=== PATIENT | male | born 1955 | race Caucasian/White ===

== ENCOUNTER 2017-05-16 16:04 | Emergency (ER) | payer BC, SELFPAY ==
[2017-05-16] MEDS ORDERED: Pantoprazole 40 MG VIAL ONE (16:26)
[2017-05-16 16:42] LABS: ALT (SGPT) 13 U/L (8-55); AST (SGOT) 8 U/L (5-34); Albumin 3.4 g/dL (3.4-4.8); Alkaline Phosphatase 124 U/L (40-150); Anion Gap 21 mmol/L (10-20); BUN (Urea Nitrogen) 13 mg/dL (8.4-25.7); Bilirubin, Total 0.7 mg/dL (0.2-1.2); Calc. Creatinine Clearance 0 mL/min (70-130); Calcium 8.5 mg/dL (7.8-10.44); Carbon Dioxide 18 mmol/L (23-31); Chloride 105 mmol/L (98-107); Estimated GFR-MDRD 48; Globulin 2.7 g/dL (2.4-3.5); Glucose 209 mg/dL (80-115); Lipase 34 U/L (8-78); Potassium 3.4 mmol/L (3.5-5.1); Protein, Total 6.1 g/dL (5.8-8.1); Sodium 141 mmol/L (136-145)
[2017-05-16 16:47] LABS: INR-International Normal Ratio 1.2; PTT 22.9 SEC (22.9-36.1); Prothrombin Time 15.4 SEC (12.0-14.7)
[2017-05-16 16:49] LABS: CKMB 2.8 ng/mL (0-6.6); Troponin I 0.019 ng/mL (< 0.028)
[2017-05-16 16:51] LABS: #Basophils 0.1 thou/uL (0.0-0.2); #Eosinphils 0.1 thou/uL (0.0-0.7); #Lymphocytes 1.9 thou/uL (1.20-3.40); #Monocytes 0.8 thou/uL (0.11-0.59); %Eosinophils 1.3 % (0.0-10.0); %Monocytes 8.3 % (0.0-10.0); %Neutrophils 70.4 % (42.0-75.0); Acanthocytes SLIGHT = 1-5 cells (100X) (None Seen); Hemoglobin 4.7 g/dL (14.0-18.0); Hypochromia MODERATE=16-30 cells (100X) (0-5/hpf); MDiff Complete? YES; Macrocytosis SLIGHT = 6-15 cells (100X) (0-5/hpf); Mean Corpuscular HGB CONC 33.5 g/dL (32.0-36.0); Mean Corpuscular Hemoglobin 28.1 pg (27.0-31.0); Mean Platelet Volume 5.9 fL (7.4-10.4); Microcytosis MODERATE=15-30 cells (100X) (0-5/hpf); Platelet Count 454 thou/uL (130-400); Polychromasia SLIGHT = 2-3 cells (100X) (0-2/hpf); RBC Distribution Width 20.9 % (11.5-14.5); Red Blood Cell (RBC) Count 1.66 mill/uL (4.70-6.10); Schistocytes SLIGHT = 2-5 cells (100X) (0-1/hpf); Tear Drops SLIGHT = 2-5 cells (100X) (0-1/hpf)
--- NOTE | 2017-05-16 20:21 | RAD ---
PORTABLE CHEST 05/16/17 An AP portable film at 1631 shows mild cardiomegaly but no congestive change. The lungs are clear. No lobar infiltrate or effusion was seen. The trachea is midline. IMPRESSION: Mild cardiomegaly. POS: HOME
== END 2017-05-16 18:30 | disposition short-term general hospital (02) ==
LOC: BURERS 16:04
DX: D64.9 Anemia, unspecified (principal); K92.2 Gastrointestinal hemorrhage, unspecified; F84.0 Autistic disorder; E78.00 Pure hypercholesterolemia, unspecified; E78.5 Hyperlipidemia, unspecified; I10 Essential (primary) hypertension; N40.0 Benign prostatic hyperplasia without lower urinary tract symptoms; Z79.899 Other long term (current) drug therapy
CPT/HCPCS: 36430; 71045; 80053; 82274; 82553; 83605; 83690; 84443; 84484; 85025; 85610; 85730; 86850; 86900; 86901; 86922; 87040; 93005; 94760; 96374; 96375; C9113; P9016

== ENCOUNTER 2018-12-05 10:58 | Outpatient (CLI) | payer MEDICARE, SELFPAY ==
--- NOTE | 2018-12-06 07:32 | ULT ---
BILATERAL RENAL ULTRASOUND 12/05/18 Ultrasonography of the kidneys was performed in this patient with chronic renal failure. There is boyd e mild cortical thinning in the kidneys bilaterally. The echogenicity of the cortex is approximately normal. No solid mass or hydronephrosis was seen. There is a 2 cm simple cyst in the right kidney. Th e right kidney is 11.0 x 5.5 x 4.7 cm and the left kidney is 10.8 x 5.1 x 5.6 cm. The urinary bladder showed no internal defects. The volume of the bladder seemed to change very littl e between prevoid and postvoid images. IMPRESSION: 1. Minor cortical thinning bilaterally. 2. 2 cm right renal cyst, appears simple. No hydronephrosis. 3. Significant postvoid residual. POS: HOME
== END 2018-12-05 10:59 | disposition home or self-care (01) ==
LOC: EEVIPCON 10:58 → BURULT 10:58
PROVIDERS: ATTEND Internal Medicine Nephrology
DX: N18.3 Chronic kidney disease, stage 3 (moderate) (principal); N28.1 Cyst of kidney, acquired
CPT/HCPCS: 76770

== ENCOUNTER 2023-10-31 17:06 | Inpatient (IN) | payer MEDICARE ==
[2023-10-31 19:18] VITALS: BMI 27.8
[2023-10-31] MEDS ORDERED: Ondansetron ODT 4 MG TAB PO PRN (19:39)
[2023-10-31] MEDS ORDERED: Polyethylene Glycol 3350 17 GM Packet PO PRN (19:39)
[2023-10-31] MEDS: Acetaminophen 500 MG TAB PO PRN (21:44)
[2023-10-31] MEDS: levETIRAcetam 500 MG TAB PO SCH (21:44)
[2023-10-31] MEDS: Tamsulosin HCl 0.4 MG CAP PO SCH (21:44)
[2023-11-01 05:48] VITALS: BMI 27.8
[2023-11-01] MEDS ORDERED: Enoxaparin 40 MG (0.4 mL) SYRINGE SC SCH (09:00)
[2023-11-01] MEDS ORDERED: Aspirin 325 MG TAB PO SCH (09:00)
[2023-11-01] MEDS: FLUoxetine HCl 20 MG CAP PO SCH (09:06)
[2023-11-01] MEDS: Losartan 25 MG TAB PO SCH (09:07)
[2023-11-01] MEDS: Ferrous Sulfate 325 MG TAB PO SCH (09:07)
[2023-11-01] MEDS: Pantoprazole DR 40 MG TAB PO SCH (09:07)
[2023-11-01] MEDS: metFORMIN XR 500 MG ER.TAB PO SCH (09:07)
[2023-11-01] MEDS: Bisoprolol Fumarate/HCTZ 10 mg/6.25 mg Tablet PO SCH (09:08)
[2023-11-01] MEDS: Hydrochlorothiazide 25 MG TAB PO SCH (13:20)
[2023-11-01] MEDS: Bisoprolol Fumarate 5 MG TAB PO SCH (13:21)
[2023-11-01] MEDS: Atorvastatin Calcium 10 MG TAB PO SCH (21:29)
[2023-11-01] MEDS: Nystatin Powder 15 GM BOT TOP PRN (21:54)
[2023-11-02 05:00] LABS: #Basophils 0.1 thou/uL (0.0-0.2); #Eosinphils 0.5 thou/uL (0.0-0.7); #Lymphocytes 2.4 thou/uL (1.20-3.40); #Monocytes 0.6 thou/uL (0.11-0.59); #Neutrophils 5.6 thou/uL (1.40-6.50); %Basophils 0.6 % (0.0-1.0); %Neutrophils 61.3 % (42.0-75.0); Hematocrit 24.5 % (42.0-52.0); Hemoglobin 7.7 g/dL (14.0-18.0); Mean Corpuscular HGB CONC 31.4 g/dL (32.0-36.0); Mean Corpuscular Hemoglobin 24.4 pg (27.0-31.0); Mean Corpuscular Volume 77.8 fl (78.0-98.0); Mean Platelet Volume 5.2 fL (7.4-10.4); Platelet Count 245 10x3/uL (130-400); Red Blood Cell (RBC) Count 3.15 mill/uL (4.70-6.10); White Blood Cell (WBC) Count 9.1 10x3/uL (4.8-10.8)
[2023-11-02 05:15] LABS: ALT (SGPT) 8 U/L (8-55); AST (SGOT) 9 U/L (5-34); Albumin 2.3 g/dL (3.4-4.8); Alkaline Phosphatase 82 U/L (40-110); Anion Gap 13 mmol/L (10-20); BUN (Urea Nitrogen) 14 mg/dL (8.4-25.7); Bilirubin, Total 0.3 mg/dL (0.2-1.2); Calc. Creatinine Clearance 84 mL/min (70-130); Calcium 7.9 mg/dL (7.8-10.44); Carbon Dioxide 26 mmol/L (23-31); Chloride 103 mmol/L (98-107); Estimated GFR 79; Globulin 3.1 g/dL (2.4-3.5); Glucose 127 mg/dL (80-115); Potassium 3.6 mmol/L (3.5-5.1); Protein, Total 5.4 g/dL (5.8-8.1); Sodium 138 mmol/L (136-145)
[2023-11-02 05:30] LABS: Anisocytosis SLIGHT = 6-15 cells (100X) (0-5/hpf); Burr Cells SLIGHT = 2-5 cells (100X) (0-1/hpf); Elliptocytes SLIGHT = 2-5 cells (100X) (0-1/hpf); MDiff Complete? YES; Platelet Adequacy Comment Appears Adequate; Poikilocytosis SLIGHT = 6-15 cells (100X) (0-5/hpf); Schistocytes SLIGHT = 2-5 cells (100X) (0-1/hpf)
[2023-11-02] MEDS: Bisoprolol Fumarate 5 MG TAB PO SCH (09:06)
[2023-11-02] MEDS: Hydrochlorothiazide 25 MG TAB PO SCH (09:06)
[2023-11-02] MEDS: Magnesium Oxide 400 MG TAB PO SCH (09:08)
[2023-11-06 05:14] LABS: #Basophils 0.1 thou/uL (0.0-0.2); #Eosinphils 0.2 thou/uL (0.0-0.7); #Monocytes 0.8 thou/uL (0.11-0.59); #Neutrophils 8.3 thou/uL (1.40-6.50); %Basophils 1.1 % (0.0-1.0); %Eosinophils 1.4 % (0.0-10.0); %Lymphocytes 17.6 % (21.0-51.0); %Monocytes 6.6 % (0.0-10.0); %Neutrophils 73.3 % (42.0-75.0); Hematocrit 26.2 % (42.0-52.0); Hemoglobin 8.3 g/dL (14.0-18.0); Mean Corpuscular HGB CONC 31.5 g/dL (32.0-36.0); Mean Corpuscular Hemoglobin 24.8 pg (27.0-31.0); Mean Corpuscular Volume 78.8 fl (78.0-98.0); Mean Platelet Volume 5.3 fL (7.4-10.4); Platelet Count 277 10x3/uL (130-400); RBC Distribution Width 22.2 % (11.5-14.5); Red Blood Cell (RBC) Count 3.33 mill/uL (4.70-6.10); White Blood Cell (WBC) Count 11.3 10x3/uL (4.8-10.8)
[2023-11-06 05:20] LABS: Anion Gap 13 mmol/L (10-20); BUN (Urea Nitrogen) 13 mg/dL (8.4-25.7); Calc. Creatinine Clearance 85 mL/min (70-130); Calcium 7.8 mg/dL (7.8-10.44); Carbon Dioxide 27 mmol/L (23-31); Chloride 104 mmol/L (98-107); Estimated GFR 80; Glucose 135 mg/dL (80-115); Potassium 3.2 mmol/L (3.5-5.1); Sodium 141 mmol/L (136-145)
[2023-11-06 05:33] LABS: MDiff Complete? YES
[2023-11-06 05:34] LABS: Anisocytosis SLIGHT = 6-15 cells (100X) (0-5/hpf); Burr Cells SLIGHT = 2-5 cells (100X) (0-1/hpf); Ovalocytes SLIGHT = 2-5 cells (100X) (0-1/hpf); Platelet Adequacy Comment Appears Adequate; Schistocytes SLIGHT = 2-5 cells (100X) (0-1/hpf)
[2023-11-06 13:19] LABS: Hemoglobin A1c 6.2 % (4.0-6.0)
[2023-11-06] MEDS: Potassium Chloride 20 MEQ TAB PO SCH (17:08)
[2023-11-07 05:09] LABS: #Basophils 0.1 thou/uL (0.0-0.2); #Eosinphils 0.2 thou/uL (0.0-0.7); #Lymphocytes 2.1 thou/uL (1.20-3.40); #Monocytes 0.6 thou/uL (0.11-0.59); #Neutrophils 5.1 thou/uL (1.40-6.50); %Eosinophils 2.9 % (0.0-10.0); %Lymphocytes 25.6 % (21.0-51.0); %Monocytes 7.2 % (0.0-10.0); %Neutrophils 63.4 % (42.0-75.0); Hematocrit 24.2 % (42.0-52.0); Hemoglobin 7.8 g/dL (14.0-18.0); Mean Corpuscular HGB CONC 32.3 g/dL (32.0-36.0); Mean Corpuscular Hemoglobin 25.5 pg (27.0-31.0); Mean Corpuscular Volume 78.9 fl (78.0-98.0); Mean Platelet Volume 5.4 fL (7.4-10.4); Platelet Count 275 10x3/uL (130-400); RBC Distribution Width 22.4 % (11.5-14.5); Red Blood Cell (RBC) Count 3.06 mill/uL (4.70-6.10)
[2023-11-07 05:20] LABS: Anisocytosis SLIGHT = 6-15 cells (100X) (0-5/hpf); Burr Cells SLIGHT = 2-5 cells (100X) (0-1/hpf); MDiff Complete? YES; Ovalocytes SLIGHT = 2-5 cells (100X) (0-1/hpf); Platelet Adequacy Comment Appears Adequate; Schistocytes SLIGHT = 2-5 cells (100X) (0-1/hpf)
[2023-11-07] MEDS: levETIRAcetam 500 MG TAB PO SCH (20:45)
[2023-11-07] MEDS: levETIRAcetam 250 MG TAB PO SCH (20:45)
[2023-11-08 05:31] LABS: Anion Gap 15 mmol/L (10-20); BUN (Urea Nitrogen) 17 mg/dL (8.4-25.7); Calc. Creatinine Clearance 45 mL/min (70-130); Calcium 7.7 mg/dL (7.8-10.44); Carbon Dioxide 25 mmol/L (23-31); Chloride 107 mmol/L (98-107); Estimated GFR 37; Glucose 131 mg/dL (80-115); Potassium 3.9 mmol/L (3.5-5.1); Sodium 143 mmol/L (136-145)
[2023-11-15 05:35] VITALS: BP 141/74; TEMP 98.1
== END 2023-11-15 14:40 | DRG 948 ==
LOC: BURMED 18:57
PROVIDERS: ADMIT Family Medicine; ATTEND Family Medicine
DX: R53.81 Other malaise (principal); F84.0 Autistic disorder; E11.9 Type 2 diabetes mellitus without complications; I10 Essential (primary) hypertension; E78.5 Hyperlipidemia, unspecified; G40.909 Epilepsy, unspecified, not intractable, without status epilepticus; D64.9 Anemia, unspecified; Z79.899 Other long term (current) drug therapy; N40.0 Benign prostatic hyperplasia without lower urinary tract symptoms; Z98.890 Other specified postprocedural states; Z88.8 Allergy status to other drugs, medicaments and biological substances; Z79.82 Long term (current) use of aspirin; R13.10 Dysphagia, unspecified
CPT/HCPCS: 36415; 71045; 80048; 80053; 83036; 85025

== ENCOUNTER 2024-01-19 10:25 | Emergency (ER) | payer MEDICARE ==
[2024-01-19 10:45] LABS: #Basophils 0.1 thou/uL (0.0-0.2); #Eosinophils 0.1 thou/uL (0.0-0.7); #Lymphocytes 1.7 thou/uL (1.20-3.40); #Monocytes 0.5 thou/uL (0.11-0.59); #Neutrophils 5.6 thou/uL (1.40-6.50); %Basophils 1.4 % (0.0-1.0); %Eosinophils 1.6 % (0.0-10.0); %Lymphocytes 21.2 % (21.0-51.0); %Monocytes 6.1 % (0.0-10.0); %Neutrophils 69.7 % (42.0-75.0); Hematocrit 27.5 % (42.0-52.0); Mean Corpuscular HGB CONC 32.9 g/dL (32.0-36.0); Mean Corpuscular Hemoglobin 29.4 pg (27.0-31.0); Mean Corpuscular Volume 89.2 fl (78.0-98.0); Mean Platelet Volume 6.1 fL (7.4-10.4); Platelet Count 316 10x3/uL (130-400); RBC Distribution Width 15.5 % (11.5-14.5); Red Blood Cell (RBC) Count 3.08 mill/uL (4.70-6.10)
[2024-01-19 11:04] LABS: ALT (SGPT) Less than 7 U/L (8-55); AST (SGOT) 7 U/L (5-34); Albumin 2.6 g/dL (3.4-4.8); Alkaline Phosphatase 96 U/L (40-110); Anion Gap 15 mmol/L (10-20); BUN (Urea Nitrogen) 13 mg/dL (8.4-25.7); Bilirubin, Total 0.4 mg/dL (0.2-1.2); Calc. Creatinine Clearance 0 mL/min (70-130); Calcium 8.3 mg/dL (7.8-10.44); Carbon Dioxide 26 mmol/L (23-31); Chloride 105 mmol/L (98-107); Estimated GFR 71; Globulin 3.5 g/dL (2.4-3.5); Glucose 116 mg/dL (80-115); Potassium 3.3 mmol/L (3.5-5.1); Protein, Total 6.1 g/dL (5.8-8.1); Sodium 143 mmol/L (136-145)
[2024-01-19 11:06] LABS: Critical Call Chemistry NUR.MB22 @ 1105; Magnesium Less than 0.6 mg/dL (1.6-2.6)
[2024-01-19] MEDS ORDERED: Magnesium 2 GM/50 ML BAG (IN WATER) ONE ×2 (11:11→11:19)
[2024-01-19 13:05] LABS: Magnesium 1.5 mg/dL (1.6-2.6)
== END 2024-01-19 14:23 ==
LOC: BURERS 10:25
DX: E83.42 Hypomagnesemia (principal); F84.0 Autistic disorder; I10 Essential (primary) hypertension
CPT/HCPCS: 80053; 83735; 85025; 96374; 99283; J3475; 36415